=== PATIENT | female | born 1955 | race Caucasian/White ===

== ENCOUNTER → 2023-04-20 14:17 | Outpatient (CLI) | payer MEDICARE, OTHER, SELFPAY ==
--- NOTE | 2023-04-20 | DI.RAD.S_ITS ---
Bone Density Report Name: ROSAMARIA AVILA Age: 67 Sex: Female Ethnicity: White Date of : 1955 Indication: postmenopausal; screening for osteoporosis; parental hip fracture; Referring Provider: ROXIE CARD Study: Bone densitometry was performed. Exam Date: April 20, 2023 Accession number: [id number] Bone Density: Region BMD T-score Z-score Classification AP Spine(L1-L4) 0.849 -1.8 0.0 Osteopenia Femoral Neck (Left) 0.715 -1.2 0.3 Osteopenia Total Hip (Left) 0.945 0.0 1.3 Normal Femoral Neck (Right) 0.734 -1.0 0.5 Normal Total Hip (Right) 0.938 0.0 1.2 Normal Total Hip Mean 0.942 0.0 1.3 Normal World Health Organization criteria for BMD impression classify patients as: Normal (T-score at or above -1.0), Osteopenia (T-score between -1.0 and -2.5), or Osteoporosis (T-score at or below -2.5). 10-year Fracture Risk(1): Major Osteoporotic Fracture 15% Hip Fracture 0.8% Reported Risk Factors: [place] (), Neck BMD=0.715, BMI=21.3, parental fracture (1) FRAX(R) Version 3.08. Fracture probability calculated for an untreated patient. Fracture probability may be lower if the patient has received treatment. Impression: The patient has low bone mass, based on the Total Spine T-score. The patient has an estimated ten-year risk of hip fracture of 0.8% and an estimated ten-year risk of major fracture of 15%, based on the WHO FRAX algorithm. The patient has risk factors, including: parental hip fracture. Discussion: BONE DENSITY IS LOW AT ONE OR MORE SKELETAL SITES. This patient's lowest T-score is low at one or more skeletal sites. It meets the World Health Organization's (WHO) criteria for low bone mass (T-score between -1.0 and -2.5). The patient's 10-year risk of fracture as calculated by FRAX is less than the threshold where pharmacological therapy is recommended by the National Osteoporosis Foundation (NOF). However, all treatment decisions require clinical judgment and consideration of individual patient factors, including patient preferences, comorbidities, previous drug use, risk factors not captured in the FRAX model (e.g., frailty, falls, vitamin D deficiency, increased bone turnover, interval significant decline in bone density) and possible under or overestimation of fracture risk by FRAX. The patient should follow a healthful lifestyle (good nutrition with adequate calcium and vitamin D, and appropriate weight-bearing exercise). Follow-Up: Consider repeating this study in 2 to 3 years to reassess this patient's status, or sooner if there is some new clinical indication. Reported by: GINO ZAZUETA M.D. on 04/20/2023 2:44:00 PM.
== END ==
PROVIDERS: PCP Physician Assistant; Referring Provider Physician Assistant; Visit Provider Physician Assistant
DX: Z78.0 Asymptomatic menopausal state (principal); M85.89 Other specified disorders of bone density and structure, multiple sites; M85.88 Other specified disorders of bone density and structure, other site
CPT/HCPCS: 77080

== ENCOUNTER 2025-09-04 09:16 | Day surgery (SDC) | payer MEDICARE, OTHER, SELFPAY ==
--- NOTE | 2025-09-04 | PATH_ITS ---
[facility] Accession Number: [id number] No. of containers..01 Tissue . 01 Material submitted: . colon - COLON, DESCENDING POLYP . 01 Diagnosis: COLON, DESCENDING POLYP: Tubular adenoma. [facility] 09/17/20251335 Local . 01 Electronically signed: . Redd Jackson MD, Pathologist NPI- [id number] . 01 Gross description: . Received in formalin with two identifiers and descending colon polyp, is a single siddiqi soft tissue fragment 0.2 cm in greatest dimension. Submitted entirely in cassette A1. ([id number]) /WENDY 09/17/20251335 Local . 01 Pathologist provided ICD-10: D12.4 . 01 CPT . 851971 Specimen Comment: A courtesy copy of this report has been sent to [facility] Pathology Performed at: [address] [facility] [id number] MD Redd Jackson MD Phone: [phone]
--- NOTE | 2025-09-04 07:16 | PM.HP.IH.1 ---
History of Present Illness History of Present Illness Date Patient Seen: 09/04/25 Time Patient Seen: 07:16 Chief complaint: Screening Colonoscopy Narrative: 69yo F presents for screening colonoscopy today. PFSH Medical History (Updated 07/30/25 @ 10:48 by González Olson MD) Left inguinal hernia Statin intolerance Seasonal affective disorder History of IBS Depression Hypertension Surgical History (Updated 07/15/25 @ 10:30 by Mita Alvarado RN) Hx of colonoscopy (~2020) H/O section Family History (Updated 05/21/25 @ 14:29 by Janneth Lim MA) Father Hypertension Heart disease Prostate cancer Sister Hypertension Brother Prostate cancer Brother Prostate cancer Social History (Updated 05/21/25 @ 14:28 by Janneth Lim MA) marital status: number of children: 3 household members: spouse lives independently: Yes occupational status: employed alcohol intake: current substance use type: does not use Meds Home Medications and Allergies Home Medications ?Medication ?Instructions ?Recorded ?Confirmed ?Type bupropion HCl 150 mg 24 hr tablet, 150 mg PO QAM 05/21/25 07/30/25 History extended release coenzyme Q10 [H2Q CoQ10] PO DAILY 05/21/25 07/30/25 History curcumin-phosphatidylcholine 500 mg PO 05/21/25 07/30/25 History mg capsule flaxseed oil PO DAILY 05/21/25 07/30/25 History lactobacillus combination no.9 PO DAILY 05/21/25 07/30/25 History [Adult 50 Plus Probiotic] lysine PO 05/21/25 07/30/25 History multivitamin 1 tab PO DAILY 05/21/25 07/30/25 History valsartan 320 1 tab PO DAILY 05/21/25 07/30/25 History mg-hydrochlorothiazide 12.5 mg tablet sodium,potassium,mag sulfates 17.5 See Rx Instructions PO .COMPLEX 07/15/25 Rx gram-3.13 gram-1.6 gram oral soln #354 mL (Suprep Bowel Prep Kit) ondansetron 8 mg disintegrating 8 mg PO Q8H PRN nausea and 07/18/25 07/30/25 Rx tablet vomiting #20 tabs Allergies Allergy/AdvReac Type Severity Reaction Status Date / Time morphine AdvReac Intermediate Verified 07/30/25 09:52 Exam Narrative Exam Narrative: Const General: healthy appearing, comfortable and no acute distress Orientation: alert and oriented x3 HENMT Ears: hearing grossly normal bilaterally Eyes Visual Beckwith: normal visual beckwith by confrontation Conjunctivae: conjunctivae normal Sclera: sclerae normal EOM: EOM intact bilaterally Resp Effort & Inspection: normal respiratory effort and able to speak in complete sentences Cardio Rate: regular rate GI Palpation: soft (NT) Extrem General: no pedal edema and no calf tenderness Assessment & Plan Assessment and plan (1) Encounter for screening colonoscopy: Status: Acute Plan Plan screening colonoscopy, possible polypectomy. The risks, benefits and options regarding the procedure were explained to the patient in detail. Risk discussion included but not limited to: bleeding, perforation, unable to reach cecum, missed lesion. The patient was encouraged to ask questions and they were answered to their satisfaction. The patient understands and is agreeable to proceed. Time-Based Coding :: [TOTAL MINUTES] spent with patient and on the chart (including review of chart, obtaining history, exam, reviewing outside data, placing orders, documenting exam and treatment plan, and counseling patient) on [DATE]. [employer] Property Management Accountant Document charge(s): Yes Charge Codes Inpatient/observation care including admit and discharge same day: [id number]
[2025-09-04 09:26] VITALS: BP 134/74; PULSE 56; RESP 80; TEMP 36.4; O2SAT 99
[2025-09-04] MEDS: LACTATED RINGERS 1,000 ML 42 ML IV (09:42)
--- NOTE | 2025-09-04 10:04 | P.OP.COLON_ITS ---
Operative Date/Time/Diagnoses Date of procedure: 09/04/25 Time of procedure: 10:37 Pre-op diagnosis: Screening colonoscopy Post-op diagnosis: other (Colon polyp, internal hemorrhoid) Procedure & Clinicians Study performed: Colonosocpy with polypectomy Same procedure(s) as scheduled: Yes Indications: 69yo F, screening colonoscopy Surgeon: González Olson Anesthesia Type: MAC +/- Procedure Notes SCOAP/Timeout: Performed Procedure in detail: Colonoscopy Patient placed in left lateral recumbent position. Time out was performed. Procedural sedation was administered by anesthesia. Examination began with a thorough inspection of the perianal area. There was no evidence of fissures, fistulae, external hemorrhoids or cutaneous malignancy. The colonoscope was then placed into the rectum and the lumen was insufflated with carbon dioxide. The scope was carefully advanced forward. Ultimately the cecum was intubated and confirmed by identification of the ileocecal valve, the appendiceal orifice and the confluence of the taenia. The scope was then slowly withdrawn examining the colon thoroughly in all directions. In the rectum, retroflexion of the scope was performed for inspection of the distal rectum and anal canal. ?Significant colonoscopy findings: ?1. Quality of the preparation-good, [place] 2-3, improved with irrigation/suction ?2. Descending colon sessile polyp 4mm, removed with cold biopsy forceps, benign appearing 3. Dominant internal hemorrhoid column, would be a candidate for banding if symptomatic Scope withdrawal time: 6 minutes Findings: internal hemorrhoids and polyp(s) Specimen(s): other (polyp) Complications: none Impression: Colon polyp, internal hemorrhoid Post-procedure Recommendations: Colonoscopy in 10 years Plan for aftercare: PACU then home Follow up: as needed Disposition: PACU
[2025-09-04 10:35] VITALS: BP 116/58; PULSE 57; RESP 16; TEMP 36.2; O2SAT 97
[2025-09-04 10:40] VITALS: BP 106/54; PULSE 54; RESP 16; O2SAT 98
[2025-09-04 10:45] VITALS: BP 107/56; PULSE 58; RESP 16; TEMP 36.2; O2SAT 98
[2025-09-04 10:50] VITALS: BP 110/65; PULSE 62; RESP 16; TEMP 36.2; O2SAT 98
== END 2025-09-04 10:56 | disposition home or self-care (01) ==
PROVIDERS: PCP Physician Assistant; Referring Provider Surgery; Visit Provider Surgery
PROC: 0DJD8ZZ Inspection of Lower Intestinal Tract, Via Natural or Artificial Opening Endoscopic (ICD-10-PCS; CPT 45378; principal; 2025-09-04 10:30)
DX: Z12.11 Encounter for screening for malignant neoplasm of colon (principal); K64.8 Other hemorrhoids; D12.4 Benign neoplasm of descending colon
CPT/HCPCS: 45380; J2704; J7120